=== PATIENT | female | born 1990 | race Two or more races ===

== ENCOUNTER 2016-10-19 12:07 | Emergency (ER) | payer OTHER ==
[2016-10-19 12:32] VITALS: RESP 16
--- NOTE | 2016-10-19 14:07 | EDPHY ---
H & P Stated Complaint: lower abd pain x 2 hours, nausea constipation HPI/ROS: CHIEF COMPLAINT: Abdominal pain. HISTORY OF PRESENT ILLNESS: The patient is a 26-year-old female presenting with lower abdominal pain that started at 10:30 a.m.. Her pain became severe within 20 minutes of onset--doubling her over. She had associated nausea, diaphoresis, and shakiness. Patient had 1 episode of emesis. She started her menstrual cycle today. Patient does not usually have significant cramping with her period. Patient notes constipation this morning. She usually has a bowel movement every morning, but this morning it required significant effort to produce small amount of stool. She continues to have mild lower abdominal cramping and low back pain. The patient is sexually active, not on control. She denies dysuria, vaginal discharge, recent diarrhea, or fever. REVIEW OF SYSTEMS: A ten point review of systems was performed and is negative with the exception of the items mentioned in the HPI. Past medical history: Asthma Past surgical history: Denies. Family history: PCOS. Social history: Research program coordinator. General Appearance: Alert. Vital signs reviewed. BP 95/62. Eyes: Pupils equal and round, no conjunctival injection, no discharge. Anicteric. ENT, Mouth: Mucous membranes are moist, no oropharyngeal erythema or edema. Neck: No lymphadenopathy, supple. Respiratory: Lungs are clear to auscultation; no wheezes, rales, or rhonchi. Cardiovascular: Regular rate and rhythm; no murmur, rub, or gallop. Gastrointestinal: Abdomen is soft and mildly tender both lower quadrants and suprapubic area, no guarding, no masses or organomegaly, bowel sounds normal. Skin: Warm and dry, no rashes on exposed skin, normal color. Back: Nontender to palpation over the thoracolumbar spine. No CVAT. Extremities: No lower extremity edema, no calf tenderness or swelling. Neurological: Alert and oriented. Moving all four extremities easily and equally. Psychiatric: Normal affect. Source: Patient - Personal History LMP (Females 10-55): Now Current Tetanus/Diphtheria Vaccine: Unsure Current Tetanus Diphtheria and Acellular Pertussis (TDAP): Unsure - Medical/Surgical History Hx Asthma: No Hx Chronic Respiratory Disease: No Hx Diabetes: No Hx Cardiac Disease: No Hx Renal Disease: No Hx Cirrhosis: No Hx Alcoholism: No Hx HIV/AIDS: No Hx Splenectomy or Spleen Trauma: No Other PMH: denies - Social History Smoking Status: Never smoked Constitutional: Initial Vital Signs Temperature (C) 36.5 C 10/19/16 12:29 Heart Rate 61 10/19/16 12:29 Respiratory Rate 16 10/19/16 12:29 Blood Pressure 95/62 L 10/19/16 12:29 O2 Sat (%) 98 10/19/16 12:29 O2 Delivery Mode Room Air Allergies/Adverse Reactions: No Known Allergies Allergy (Unverified 10/19/16 12:29) Home Medications: Medication Instructions Recorded NK [No Known Home Meds] 10/19/16 Medical Decision Making ED Course/Re-evaluation: Patient presents with acute lower abdominal pain. On exam patient has bilateral suprapubic and lower abdominal pain. Plan to check urinalysis, pelvic ultrasound , and lab work including CBC and Chemistry. I offered pain medication, patient declines. CBC shows elevated WBC. Remainder blood work normal. test negative. Pelvic ultrasound results pending at 4:00 p.m.. Patient re-examined. She is resting comfortably and continues to decline pain medication. On exam she has mild bilateral lower quadrant tenderness, no guarding. Ultrasound shows a 1.2 cm involuting left ovarian follicular cyst. No free fluid or evidence of cyst rupture. I do not know whether this is what has been causing her discomfort. She feels well enough to return home. She is given a primary care referral for follow-up. We reviewed the danger signs that should prompt her to be re- evaluated. I am recommending re-evaluation tomorrow if she has persistent abdominal pain. Her pain has been primary midline, but slightly worse on the left. She does not have guarding or rebound. Negative Galvez's. I do not suspect appendicitis. There is no evidence of urinary tract infection or pyelonephritis. She is not , so this is not an ectopic . There is no evidence of ovarian torsion. Differential Diagnosis: Abdominal pain including but not limited to appendicitis, ruptured ovarian cyst , ovarian torsion, ectopic , urinary tract infection, pyelonephritis. - Data Points Laboratory Results: Laboratory Results 10/19/16 14:46 10/19/16 14:46 Departure - Departure Disposition: Home, Routine, Self-Care Clinical Impression: Abdominal pain Qualifiers: Abdominal location: lower abdomen, unspecified Qualified Code(s): R10.30 - Lower abdominal pain, unspecified Ovarian cyst Qualifiers: Laterality: left Qualified Code(s): N83.202 - Unspecified ovarian cyst, left side Condition: Good Instructions: Ovarian Cyst (ED), Acute Abdominal Pain (ED) Additional Instructions: I am referring you to Dr. Robby Haywood for primary care. Use this referral if needed. As we discussed, if you worsen in any way--fever, vomiting, worsening pain, new or concerning symptoms--you should be re-evaluated. If you still have abdominal pain tomorrow I recommend that you be seen and re-examined. You are welcome to return here for that. Adult Pain & Fever Control: We recommend Acetaminophen (Tylenol) and Ibuprofen (Motrin,Advil) for pain and fever control. When fever is high or pain severe, both drugs can be used at the same time, but at different intervals. Please note the time differences. Your dose is: Acetaminophen 650mg every 4 to 6 hours Ibuprofen 400mg every 8 hours with food OR Note: do not take Acetaminophen with Hydrocodone (Vicodin, Lortab) or Oycodone (Percocet). These medications also contain Acetaminophen. No more than 3000mg of Acetaminophen should be taken in 24 hours (for an adult). Referrals: Be Haywood MD [Medical Doctor] - As per Instructions Report Scribed for: Penny Lopez Report Scribed by: Yvette Díaz Date of Report: 10/19/16 Physician Review and Approval Statement: 10/19/16 14:07 Portions of this note were transcribed by the claim review medical director. I, Dr. Penny Lopez, personally performed the history, physical exam, and medical decision- making; and confirmed the accuracy of the information in the transcribed note.
[2016-10-19 14:50] LABS: % IMMATURE GRANULYOCYTES 0.3 % (0.0-1.1); ABSOLUTE IMMATURE GRANULOCYTES 0.06 10^3/uL (0.00-0.10); ADD DIFF? NO; ADD MORPH? NO; ADD SCAN? NO; ATYPICAL LYMPHOCYTE FLAG 0 (0-99); FRAGMENT RBC FLAG 0 (0-99); HEMATOCRIT 41.4 % (38.0-47.0); HEMOGLOBIN 14.3 g/dL (12.6-16.3); LEFT SHIFT FLG 0 (0-99); LIPEMIA HEMOLYSIS FLAG 90 (0-99); MEAN CELL HEMOGLOBIN 31.8 pg (27.9-34.1); MEAN CELL HEMOGLOBIN CONCENTR. 34.5 g/dL (32.4-36.7); MEAN PLATELET VOLUME 9.7 fL (8.7-11.7); PLATELET CLUMPS FLAG 10 (0-99); PLATELET COUNT 266 10^3/uL (150-400); RED CELL DISTRIBUTION WIDTH 12.2 % (11.5-15.2)
[2016-10-19 15:09] LABS: ANION GAP 12 mEq/L (8-16); CALCIUM 9.8 mg/dL (8.5-10.4); CARBON DIOXIDE 22 mEq/l (22-31); CHLORIDE 104 mEq/L (97-110); CREATININE 0.8 mg/dL (0.6-1.0); GLOMERULAR FILTRATION RATE > 60; GLUCOSE 122 mg/dL (70-100); POTASSIUM 3.9 mEq/L (3.5-5.2); SODIUM 138 mEq/L (134-144)
[2016-10-19 15:25] LABS: COLOR COLORLESS; LEUKOCYTE ESTERASE,URINE NEGATIVE (NEGATIVE); NITRITE,URINE NEGATIVE (NEGATIVE)
[2016-10-19 16:43] VITALS: BP 110/67; PULSE 67; TEMP 98.1; O2SAT 97
== END 2016-10-19 16:43 | disposition home or self-care (01) ==
DX: N83.202 Unspecified ovarian cyst, left side (principal); J45.909 Unspecified asthma, uncomplicated